=== PATIENT | male | born 1985 | race Native Hawaiian/Other Pacific Islander ===

== ENCOUNTER 2017-05-27 18:00 | Emergency (ER) | payer OTHER ==
[~2017-05-27] VITALS: Ht 190.5 cm; Wt 69.9 kg
[2017-05-27 19:06] LABS: POTASSIUM 3.2 mmol/L (3.6-5.2); SODIUM 137 mmol/L (136-145)
[2017-05-27 19:07] LABS: PLATELET COUNT 254 K/uL (142-355)
[2017-05-27 20:30] VITALS: BP 114/57; TEMP 98.2
== END 2017-05-27 20:32 | disposition home or self-care (01) ==
LOC: ED 18:00
PROVIDERS: Emergency Medicine
DX: R41.0 Disorientation, unspecified (principal); R00.0 Tachycardia, unspecified
CPT/HCPCS: 36415; 80053; 80307; 80320; 80329; 81000; 82550; 84484; 85027; 93005; 96361; 96374; 96375; 99284; G0479; J2060; J2405

== ENCOUNTER 2020-01-08 13:55 | Outpatient (CLI) | payer OTHER | END 2020-01-08 19:11 | disposition home or self-care (01) | LOC: RAD 13:55 | DX: R07.89 Other chest pain (principal) ==

== ENCOUNTER 2020-08-09 14:25 | Emergency (ER) | payer OTHER ==
[~2020-08-09] VITALS: Ht 190.5 cm; Wt 72.6 kg
[2020-08-09 14:37] VITALS: TEMP 99
[2020-08-09 15:34] VITALS: BP 125/86
== END 2020-08-09 15:40 | disposition home or self-care (01) ==
LOC: ED 14:25
DX: K21.9 Gastro-esophageal reflux disease without esophagitis (principal); K27.9 Peptic ulcer, site unspecified, unspecified as acute or chronic, without hemorrhage or perforation
CPT/HCPCS: 99282

== ENCOUNTER 2021-09-28 14:16 | Outpatient (CLI) | payer OTHER ==
[2021-09-28 15:35] LABS: PLATELET COUNT 252 K/uL (142-355)
[2021-09-28 15:54] LABS: POTASSIUM 3.9 mmol/L (3.6-5.2)
== END 2021-09-28 21:05 | disposition home or self-care (01) ==
LOC: LAB 14:16 → RESP 14:16
PROVIDERS: ATTEND Nurse Practitioner Family
DX: R94.31 Abnormal electrocardiogram [ECG] [EKG] (principal); R10.11 Right upper quadrant pain; R00.2 Palpitations
CPT/HCPCS: 80053; 82150; 83690; 84443; 85027; 86677; 93225

== ENCOUNTER 2021-10-13 14:19 | Emergency (ER) | payer OTHER ==
[~2021-10-13] VITALS: Ht 190.5 cm; Wt 72.6 kg
[2021-10-13 14:27] VITALS: TEMP 98
[2021-10-13 14:59] LABS: PLATELET COUNT 264 K/uL (142-355)
[2021-10-13 15:28] LABS: PARTIAL THROMBOPLASTIN TIME 21.2 SECONDS (24.5-33.6)
[2021-10-13 15:29] LABS: POTASSIUM 3.7 mmol/L (3.6-5.2)
[2021-10-13 15:51] VITALS: BP 120/70
== END 2021-10-13 15:52 | disposition home or self-care (01) ==
LOC: ED 14:19
PROVIDERS: Family Medicine
DX: R07.89 Other chest pain (principal)
CPT/HCPCS: 80053; 82550; 84484; 85027; 85610; 85730; 93005; 96365; 96374; 99284; J2060

== ENCOUNTER 2022-05-17 12:04 | Emergency (ER) | payer OTHER ==
[~2022-05-17] VITALS: Ht 190.5 cm; Wt 69.4 kg
[2022-05-17 12:08] VITALS: TEMP 97.8
[2022-05-17 12:52] LABS: PLATELET COUNT 236 K/uL (142-355)
[2022-05-17 13:01] LABS: POTASSIUM 4.1 mmol/L (3.6-5.2)
[2022-05-17 14:09] VITALS: BP 119/77
== END 2022-05-17 14:09 | disposition home or self-care (01) ==
LOC: ED 12:04
PROVIDERS: Emergency Medicine Emergency Medical Services
DX: R00.2 Palpitations (principal); Z91.14 Patient's other noncompliance with medication regimen
CPT/HCPCS: 36415; 80053; 80307; 83735; 84484; 85027; 93005; 96360; 96374; 99284; J3490

== ENCOUNTER 2022-10-02 18:13 | Emergency (ER) | payer OTHER ==
[~2022-10-02] VITALS: Ht 190.5 cm; Wt 72.6 kg
[2022-10-02 18:22] VITALS: TEMP 99.1
[2022-10-02 19:10] LABS: PLATELET COUNT 273 K/uL (142-355)
[2022-10-02 19:17] LABS: POTASSIUM 3.4 mmol/L (3.6-5.2)
[2022-10-02 19:24] LABS: PARTIAL THROMBOPLASTIN TIME 26.3 SECONDS (24.5-33.6)
[2022-10-02 20:45] VITALS: BP 120/81
== END 2022-10-02 20:45 | disposition home or self-care (01) ==
LOC: ED 18:13
PROVIDERS: Family Medicine
DX: R00.2 Palpitations (principal); F41.8 Other specified anxiety disorders
CPT/HCPCS: 36415; 80053; 80307; 82550; 84443; 84484; 85027; 85610; 85730; 93005; 99283

== ENCOUNTER 2023-02-08 09:56 | Emergency (ER) | payer OTHER ==
[~2023-02-08] VITALS: Ht 190.5 cm; Wt 71.2 kg
[2023-02-08 10:00] VITALS: TEMP 97.4
[2023-02-08 10:53] LABS: PLATELET COUNT 228 K/uL (142-355)
[2023-02-08 11:04] LABS: POTASSIUM 4.5 mmol/L (3.6-5.2)
[2023-02-08 12:30] VITALS: BP 100/66
== END 2023-02-08 14:12 | disposition home or self-care (01) ==
LOC: ED 09:56
PROVIDERS: Internal Medicine
DX: R07.89 Other chest pain (principal)
CPT/HCPCS: 80053; 80307; 84484; 85027; 93005; 99284